=== PATIENT | male | born 1940 | race Caucasian/White ===

== ENCOUNTER 2017-11-05 12:32 | Emergency (ER) | payer MEDICARE, OTHER, SELFPAY ==
--- NOTE | 2017-11-05 | CT_ITS ---
CT abdomen pelvis wo con Ordering Physician: Kim Prabhakar MD Patient Age: 77 years: Male HISTORY: ITS.REASON: ABD/PELVIC PAIN TECHNIQUE: Helical CT scanning performed through the abdomen and pelvis with no oral nor IV contrast utilized. COMPARISON :No previous abdominal studies available for comparison CTA chest from February 2017 includes uppermost most abdomen. No history available to radiologist through the [employer] thus I cannot review laboratory or ER findings correlate. HISTORY is extremely not limited FINDINGS ... Significant weight loss since February [address] Requires correlation Now Very thin patient with lack of intraperitoneal fat which limits the study and makes it difficult to delineate structures particularly given this area is a noncontrast CT abdomen.. The lack of oral and IV contrast decreases sensitivity overall particularly with the lack of about intra-abdominal fat surrounding structures . Lung bases clear with no significant acute findings. . Heart normal size. Coronary artery calcification as well as calcification at the root of aorta as well as towards aortic valve region. Liver. Granulomatous calcifications. No focal lesions. Biliary ducts upper normal. Spleen. Modest size. Groundglass calcifications. Gallbladder contracted.. Calcified sludge and/or some gravel-like stones stones. Sagittal image 25 axial 58 Pancreas. Not well seen but no focal lesions or significant change. Aorta. Calcified aorta mildly dilated measuring up 2.6 cm diameter... Calcified iliac vessels. Kidneys. No urinary tract calculi nor obstruction.. No renal mass. Pelvis. . With this the lack of intraperitoneal fat along with lack of oral and IV contrast makes it very difficult to delineate structures particularly here at the pelvis. Likely normal but only questionably visualized. Also. Cannot totally exclude minimal fluid at pelvis but I favor small bowel bowel loops and enlarged seminal vesicles more likely a catheter for this appearance and doubt significant free fluid. PROSTATE enlarged measuring 6.4 cm transverse diameter on the axial image 105. On sagittal image 45 there is an prominent density lobulated density focally indenting the inferior base of the urinary bladder which I believe is likely enlarged lobulated prostate measures over 7 cm height.. The urinary bladder drapes over this area. (Favor enlarged prostate prominent in indenting the base of bladder. (Doubt bladder wall lesion at midline base of bladder.)... These findings require urology follow-up and correlation with urinalysis. I have no access to laboratory with [employer] system to further correlate ... GI TRACT. Prominent stool is seen at the low-lying cecum. Reflecting constipation in increased stool also seen throughout the right and transverse colon.. Generous gas is seen at the splenic flexure. Mild to moderate stool and gas throughout the remainder of the rectosigmoid and descending colon. Small bowel is slight increased fluid. It is difficult with the lack of distention with trace structures to exclude a minimal fluid at the lower pelvic basin. More likely a I'm giving prominent seminal vesicles in this region.. Moderate distended fluid-filled stomach. Otherwise no bowel dilatation or obstruction .. Regarding right hip pain I see no lesions at the right hip than the right femoral head intact. The right hip joint space fairly well maintained. No bone lesions are identified Nearly 20 degree dextroscoliosis L1-L3 . Degenerative disc narrowing and facet hypertrophy most evident the left at L2/3 L3/4.. Developing spinal stenosis at each of these levels., .. Disc space narrowing with degenerative listhesis L3 on L4. Marked disc space narrowing L2/3 to the left along with posterior element hypertrophy.. Also disc
[2017-11-05 12:39] VITALS: BP 151/79; PULSE 57; RESP 18; TEMP 36.8; O2SAT 100; BMI 19.3
[2017-11-05 13:58] LABS: Basophils % 0.3 % (0.1-2.0); Eosinophils # 0.2 K/mm3 (0.0-0.4); Hematocrit 40.8 % (42.0-52.0); Hemoglobin 13.3 g/dL (14.1-18.0); Lymphocytes # 1.9 K/mm3 (0.7-4.5); Lymphocytes % 21.5 K/mm3 (10-50); Mean Corpuscular HGB Conc 32.6 g/dL (31.8-35.4); Mean Platelet Volume 9.5 fl (7.4-10.4); Monocytes # 0.5 K/mm3 (0.1-1.0); Monocytes % 5.1 % (1.7-9.3); Neutrophils # 6.3 K/mm3 (1.8-7.8); Neutrophils % 71.2 % (37.0-80.0); Platelet Count 261 K/mm3 (142-424); Red Blood Count 4.59 M/mm3 (4.60-6.20); Red Cell Distribution Width 15.9 % (11.5-17.5); White Blood Count 8.9 K/mm3 (4.8-10.8)
[2017-11-05 14:09] LABS: Alanine Aminotransferase 35 U/L (12-78); Albumin Level 3.9 gm/dL (3.4-5.0); Albumin/Globulin Ratio 1.2 (1.1-1.8); Alkaline Phosphatase 92 U/L (46-116); Anion Gap 11.8 mEq/L (5-15); Aspartate Amino Transferase 31 U/L (15-37); Bilirubin,Total 0.5 mg/dL (0.2-1.0); Blood Urea Nitrogen 13 mg/dL (7-18); Calcium 8.7 mg/dL (8.5-10.1); Carbon Dioxide 26 mmol/L (21.0-32.0); Chloride 102 mmol/L (98-107); Creatinine Clearance Estimated 58 mL/min (0-300); Estimated Glomerular Filt Rate 94 ml/min (>60); GFR (African American) 114 ML/MIN (>60); Globulin 3.3 gm/dl (1.3-3.2); Glucose 107 mg/dL (74-106); Lipase 230 u/L (73-393); Potassium 3.8 mmoL/L (3.5-5.1); Sodium 136 mmol/L (136-145); Total Protein,Serum 7.2 gm/dL (6.4-8.2)
[2017-11-05 15:19] LABS: Microscopic, Urine URINE MICROSCOPIC (MICROSCOPIC)
[2017-11-05 15:21] LABS: Appearance,Urine SL CLOUDY (Clear); Bilirubin,Urine Negative (Negative); Blood, Urine Negative (Negative); Color,Urine YELLOW (Yellow); Glucose,Urine (UA) Negative (Negative); Ketones,Urine Negative (Negative); Leukocyte Esterase,Urine Negative (Negative); Nitrate,Urine Negative (Negative); PH,Urine 7.5 (5.0-8.5); Protein,Urine Negative (Negative); Specific Gravity, Urine 1.015 (1.005-1.030); Urobilinogen,Urine 0.2 EU/dl (0.2)
[2017-11-05 15:36] LABS: Bacteria,Urine 3+ /lpf
--- NOTE | 2017-11-05 20:21 | HMH.EDGENADL ---
ED Disposition Clinical Impression: Nausea alone Hip pain, chronic Qualifiers: Laterality: unspecified laterality Qualified Code(s): M25.559 - Pain in unspecified hip; G89.29 - Other chronic pain Disposition: Left Against Medical Advice Condition on Discharge: Good Instructions: DI for Nausea -- Child, DI for Diarrhea and Traveler's Diarrhea -- Adult, DI for Diarrhea and Traveler's Diarrhea -- Child Additional Instructions: Patient left after CT was performed and reviewed and noted to be negative; he left before receiving any discharge instructions. Referrals: Inocente Chaudhari MD [Primary Care Provider] - - Critical Care Critical Care Time: No Attestation: On 11/05/17, the high probability of a clinically significant, sudden or life threatening deterioration of the following system(s) required my full and direct attention, intervention and personal management. The time I documented below is in addition to time spent performing reported procedures but includes the following listed in this critical care notation. Medical Decision Making Vital Signs: 11/05/17 12:39 11/05/17 18:00 Temperature 98.2 F Temperature Source Oral Pulse Rate [Left Brachial] 57 L Respiratory Rate 18 Blood Pressure [Left Arm] 151/79 Blood Pressure Mean [Left Arm] 103 Blood Pressure Source [Left Arm] Automatic Cuff Blood Pressure Position [Left Arm] Sitting 02 Sat by Pulse Oximetry 100 Oxygen Delivery Method Room Air Room Air - Lab Data Lab Results 11/05/17 13:40: WBC 8.9, RBC 4.59 L, Hgb 13.3 L, Hct 40.8 L, MCV 89.0, MCH 29.0, MCHC 32.6, RDW 15.9, Plt Count 261, MPV 9.5, Neut % (Auto) 71.2, Lymph % (Auto) 21.5, [place] % (Auto) 5.1, Eos % (Auto) 2.0, Baso % (Auto) 0.3, Neut # (Auto) 6.3, Lymph # (Auto) 1.9, [place] # (Auto) 0.5, Eos # (Auto) 0.2, Baso # (Auto) 0.0 11/05/17 13:40: Sodium 136, Potassium 3.8, Chloride 102, Carbon Dioxide 26, Anion Gap 11.8, BUN 13, Creatinine 0.80, Estimated Creat Clear 58, Estimated GFR 94, Est GFR ( Amer) 114, Glucose 107 H, Calcium 8.7, Total Bilirubin 0.5, AST 31, ALT 35, Alkaline Phosphatase 92, Total Protein 7.2, Albumin 3.9, Globulin 3.3 H, Albumin/Globulin Ratio 1.2, Lipase 230 11/05/17 15:15: Urine Color Yellow, Urine Appearance Sl cloudy, Urine pH 7.5, Ur Specific [place] 1.015, Urine Protein Negative, Urine Glucose (UA) Negative, Urine Ketones Negative, Urine Blood Negative, Urine Nitrate Negative, Urine Bilirubin Negative, Urine Urobilinogen 0.2, Ur Leukocyte Esterase Negative, Urine WBC 5-10, Ur Squamous Epith Cells 3-5, Urine Bacteria 3+ Result diagrams: 11/05/17 13:40 11/05/17 13:40 Orders (Tests/Meds): ED MEDICATIONS Discontinued Medications Generic Name Dose Route Start Last Admin Trade Name Freq PRN Reason Stop Dose Admin Ondansetron HCl 4 mg 11/05/17 15:16 11/05/17 15:20 Zofran 4mg/2ml Vial IV 11/05/17 15:17 4 mg ONCE ONE Administration ORDERS Category Date Time Status Lactic Acid Stat Lab 11/05/17 13:29 Ordered Urine Culture Stat Micro 11/05/17 15:15 Received - CT Data CT Scan: Abdomen, Pelvis Time Received: 17:[address] Reviewed: Yes: I have viewed the radiologist's interpretation Preliminary Findings: Abnormal Findings Narrative: gall bladder sludge; increased stool; no hip abnormalities noted; some DJD of lumbar spine; neg acute findings; enlarged prostate. - Justen Inquiry Pt receiving controlled substance: No General Adult HPI - General Chief complaint: Nausea/Vomiting/Diarrhea Stated complaint: hip pain unknown origin Mode of Arrival: Wheelchair Limitations: Altered Mental Status Description of Symptoms (Recalled from ER Triage Doc. by RN): left hip pain, nausea - History of Present Illness HPI narrative: With chronic hip pain, seems to be worse over the past 2 weeks. Also having some nausea. He has had a closed head injury in the past, daughter is his historian. Says that he has had no mandie chest jeremy
--- NOTE | 2017-11-05 20:25 | ED_ITS ---
ED Disposition Clinical Impression: Nausea alone Hip pain, chronic Qualifiers: Laterality: unspecified laterality Qualified Code(s): M25.559 - Pain in unspecified hip; G89.29 - Other chronic pain Disposition: Left Against Medical Advice Condition on Discharge: Good Instructions: DI for Nausea -- Child, DI for Diarrhea and Traveler's Diarrhea - - Adult, DI for Diarrhea and Traveler's Diarrhea -- Child Additional Instructions: Patient left after CT was performed and reviewed and noted to be negative; he left before receiving any discharge instructions. Referrals: Inocente Chaudhari MD [Primary Care Provider] - - Critical Care Critical Care Time: No Attestation: On 11/05/17, the high probability of a clinically significant, sudden or life threatening deterioration of the following system(s) required my full and direct attention, intervention and personal management. The time I documented below is in addition to time spent performing reported procedures but includes the following listed in this critical care notation. Medical Decision Making Vital Signs: 11/05/17 12:39 11/05/17 18:00 Temperature 98.2 F Temperature Source Oral Pulse Rate [Left Brachial] 57 L Respiratory Rate 18 Blood Pressure [Left Arm] 151/79 Blood Pressure Mean [Left Arm] 103 Blood Pressure Source [Left Arm] Automatic Cuff Blood Pressure Position [Left Arm] Sitting 02 Sat by Pulse Oximetry 100 Oxygen Delivery Method Room Air Room Air - Lab Data Lab Results 11/05/17 13:40: WBC 8.9, RBC 4.59 L, Hgb 13.3 L, Hct 40.8 L, MCV 89.0, MCH 29.0 , MCHC 32.6, RDW 15.9, Plt Count 261, MPV 9.5, Neut % (Auto) 71.2, Lymph % (Auto ) 21.5, [place] % (Auto) 5.1, Eos % (Auto) 2.0, Baso % (Auto) 0.3, Neut # (Auto) 6.3, Lymph # (Auto) 1.9, [place] # (Auto) 0.5, Eos # (Auto) 0.2, Baso # (Auto) 0.0 11/05/17 13:40: Sodium 136, Potassium 3.8, Chloride 102, Carbon Dioxide 26, Anion Gap 11.8, BUN 13, Creatinine 0.80, Estimated Creat Clear 58, Estimated GFR 94, Est GFR ( Amer) 114, Glucose 107 H, Calcium 8.7, Total Bilirubin 0.5, AST 31, ALT 35, Alkaline Phosphatase 92, Total Protein 7.2, Albumin 3.9, Globulin 3.3 H, Albumin/Globulin Ratio 1.2, Lipase 230 11/05/17 15:15: Urine Color Yellow, Urine Appearance Sl cloudy, Urine pH 7.5, Ur Specific [place] 1.015, Urine Protein Negative, Urine Glucose (UA) Negative, Urine Ketones Negative, Urine Blood Negative, Urine Nitrate Negative, Urine Bilirubin Negative, Urine Urobilinogen 0.2, Ur Leukocyte Esterase Negative, Urine WBC 5-10, Ur Squamous Epith Cells 3-5, Urine Bacteria 3+ Result diagrams: 11/05/17 13:40 11/05/17 13:40 Orders (Tests/Meds): ED MEDICATIONS Discontinued Medications Generic Name Dose Route Start Last Admin Trade Name Freq PRN Reason Stop Dose Admin Ondansetron HCl 4 mg 11/05/17 15:16 11/05/17 15:20 Zofran 4mg/2ml Vial IV 11/05/17 15:17 4 mg ONCE ONE Administration ORDERS Category Date Time Status Lactic Acid Stat Lab 11/05/17 13:29 Ordered Urine Culture Stat Micro 11/05/17 15:15 Received - CT Data CT Scan: Abdomen, Pelvis Time Received: 17:[address] Reviewed: Yes: I have viewed the radiologist's interpretation Preliminary Findings: Abnormal Findings Narrative: gall bladder sludge; increased stool; no hip abnormalities noted; some DJD of lumbar spine; neg acute findings; enla
== END 2017-11-05 18:00 | disposition left against medical advice (07) ==
PROVIDERS: Emergency Provider Emergency Medicine; Family Provider Family Medicine; PCP Family Medicine
DX: R11.0 Nausea (principal); Z53.21 Procedure and treatment not carried out due to patient leaving prior to being seen by health care provider; M25.552 Pain in left hip; G89.29 Other chronic pain; Z79.899 Other long term (current) drug therapy; Z88.8 Allergy status to other drugs, medicaments and biological substances; F17.210 Nicotine dependence, cigarettes, uncomplicated
CPT/HCPCS: 74176; 80053; 81001; 83690; 85025; 87086; 96374; 99282; J2405

== ENCOUNTER → 2017-11-11 08:03 | Outpatient (CLI) | payer MEDICARE, OTHER, SELFPAY ==
--- NOTE | 2017-11-11 08:10 | US_ITS ---
US abdomen limited HISTORY: Abdominal pain with vomiting and nausea ITS.REASON: GB STONE, VOMITING /NAUSEA ORDERING PHYSICIAN: Inocente Chaudhari MD PATIENT AGE: 77 years COMPARISON: None FINDINGS: PANCREAS: Unremarkable. No obvious mass or abnormal fluid collection. No ductal dilatation LIVER: No focal liver lesions demonstrated. Homogeneous echogenicity. No intrahepatic biliary ductal dilatation evident. Scattered hyperechoic foci within the liver consistent with calcifications RIGHT KIDNEY: Unremarkable. Normal size and echogenicity. No hydronephrosis GALLBLADDER: There are gallstones present. No gallbladder wall thickening, pericholecystic fluid, or biliary dilatation. Common bile duct is normal at 3 mm. Multiple small stones are present. IMPRESSION: Cholelithiasis
== END ==
PROVIDERS: Family Provider Family Medicine; PCP Family Medicine; Visit Provider Family Medicine
DX: R11.2 Nausea with vomiting, unspecified (principal); K80.20 Calculus of gallbladder without cholecystitis without obstruction
CPT/HCPCS: 76705

== ENCOUNTER 2017-11-23 05:57 | Day surgery (SDC) | payer MEDICARE, OTHER, SELFPAY ==
[2017-11-22 12:53] VITALS: BMI 16.9
[2017-11-23] VITALS (9 sets, daily range): BP systolic 117–146; BP diastolic 37–92; PULSE 57–79; RESP 16–18; TEMP 36.2–37; O2SAT 95–100
--- NOTE | 2017-11-23 07:01 | HMH.ANESCL ---
[facility] Anesthesia Checklist - Structural Data Admitted From: Home Planned Operative Procedure/s: lap sol Consent for Planned Operative Procedure(s) Verified: Yes Verified Documents: Surgical Consent - NPO Status Verified Time NPO: 12:00 - Neurological Assessment Level of Consciousness: Awake, Alert - Anesthesia Plan Anesthesia Risk discussed: Yes Anesthesia Plan: Verified ASA Class: II Anesthesia Type: General [facility] Anesthesia HX I have reviewed the patient's past medical history: Yes Medical History: Denies:: Cancer, Diabetes Mellitus Type 1, Diabetes Mellitus Type 2, Internal Pacemaker, MRSA, Seizures Other Medical History: Reports: Other (high cholesterol) Comment: hypothyroid Laterality Cases: Left: Arthroscopy Knee, Bilateral: Tonsillectomy Other Surgeries: Yes: Colonoscopy, EGD. No: Pacemaker Amputation: No Fractures: Yes (skull & ribs) Comment: tonsils *Family Hx:: Cancer, Hypertension
--- NOTE | 2017-11-23 08:10 | HMH.OPNOTE ---
Date of procedure: 11/23/17 Pre-op Diagnosis:: Symptomatic cholelithiasis Post-op diagnosis:: same Procedure performed:: Laparoscopic cholecystectomy Surgeon:: Isac Maya MD Assistant Portfolio Manager(s):: Jose Antonio Jose DINKEY LOCOMOTIVE ENGINEER:: Bruce Downey Anesthesia: GETA Estimated blood loss (mL): 10 Operative findings:: Partially intrahepatic gallbladder Moderate thickening of tissue in and around the infundibulum Operative note:: After informed consent was obtained, the patient was taken to the operating room and placed in the supine position. General anesthesia was induced and the abdomen was prepped and draped in a sterile fashion. After infiltration with local anesthetic an infraumbilical incision was made. A Veress needle was placed in position. The abdomen was insufflated. A 5 mm optical trocar was placed in position. Under direct visualization, a 12 mm trocar was placed in the subxiphoid position and 2 additional 5 mm trocars were placed in the right upper quadrant. The gallbladder was elevated up and over the liver margin. The tissue around the cystic duct was carefully dissected. 3 clips were placed proximally and the duct was transected with harmonic dane. Harmonic dane were then utilized to dissect the gallbladder away from the liver margin with careful attention to the control of the cystic artery. The gallbladder was placed in a retrieval bag and removed through the subxiphoid trocar site. The right upper quadrant was thoroughly irrigated. No active bleeding or bile leak was noted. Fascia at the subxiphoid trocar site was reapproximated utilizing 0 Ethibond. T he remaining trocars were removed. All wounds were irrigated and skin was closed with 4-0 Monocryl in a subcuticular fashion. Steri-Strips were applied. The patient's anesthetic agents were reversed and extubation was completed prior to transfer to recovery in stable condition. Condition: stable Disposition: PACU Specimens:: Gallbladder and contents Complications:: No immediate
--- NOTE | 2017-11-23 08:25 | HMH.ANESI ---
[facility] Anesthesia Record Part I Intake, IV Amount: 900 Estimated blood loss (mL): 10 Urine output (mL): 0 Blood Products used (#): none Blood Pressure: 146/75 SaO2: 99 Pulse Rate: 73 Respiratory Rate: 18 Temperature: 97.4 F Patient is:: Drowsy, Stable Stable to PACU at:: 08:26
--- NOTE | 2017-11-23 08:26 | HMH.ANESII ---
[facility] Anesthesia Record Part II Discharge Time: 08:56 Destination: Surgical Day Care (OP Surgery) PACU nurse assessment reviewed?: Yes Patient Condition:: Good Anesthesia Complications:: None
--- NOTE | 2017-11-23 10:16 | PC.NURSE ---
0857: Patient is very hard of hearing, daughter at bedside assisting with hearing aids application.
--- NOTE | 2017-11-23 10:18 | PC.NURSE ---
0907: Called Dr. Maya's office to speak with Dr. Maya in regards to having 1 gram IV tylenol per anesthesia. Wanted to see if he wanted to give a different medication that what he wrote. Spoke with BUCK from the office and she said he will call back.
--- NOTE | 2017-11-23 10:27 | PC.NURSE ---
0914: Dr. Maya calls back and gives new order for patient's pain. Patient may be given roxicodone 5mg po x1 now.
== END 2017-11-23 09:50 | disposition home or self-care (01) ==
PROVIDERS: Family Provider Family Medicine; PCP Family Medicine; Visit Provider Surgery
PROC: 0FT44ZZ Resection of Gallbladder, Percutaneous Endoscopic Approach (ICD-10-PCS; CPT 47562; principal; 2017-11-23 07:30)
DX: K80.20 Calculus of gallbladder without cholecystitis without obstruction (principal)
CPT/HCPCS: 47562; 88304; 96374; J0131; J2405; J2710

== ENCOUNTER 2020-02-26 20:11 | Inpatient (IN) | payer MEDICARE, OTHER, SELFPAY ==
[2020-02-26] VITALS (8 sets, daily range): BP systolic 117–139; BP diastolic 53–69; PULSE 70–94; RESP 16–20; TEMP 36.8–37.1; O2SAT 96–100; BMI 16.0
--- NOTE | 2020-02-26 20:21 | XR_ITS ---
PROCEDURE: XR CHEST PORTABLE CLINICAL HISTORY: fall Posttraumatic pain COMPARISON: XR HIP RT 2-3V W/PELVIS from 02/26/2020 Pelvis from 02/26/2020 FINDINGS: The cardiomediastinal silhouette and pulmonary vascularity are within normal limits. The lungs are clear without infiltrates, suspicious nodules, or pleural effusions. No acute bony abnormalities. IMPRESSION: No acute findings. Dictated by: Tom Naranjo MD 02/27/2020 07:33 Electronically signed by Tom Naranjo MD in [place] 02/27/2020 07:33
--- NOTE | 2020-02-26 20:24 | ECG_ITS ---
APPROVED REPORT Exam: Resting ECG HR:65 bpm ECG Measurements Heart Rate 65 AXES SD 186 P 77 QRSd 96 QRS 79 QT 424 T 46 QTc 440 <Conclusion> Normal sinus rhythm Normal ECG Electronically signed by : Bruce Haynes, 02/27/2020 06:32:08
[2020-02-26 20:34] LABS: Basophils % 0.5 % (0.1-2.0); Eosinophils # 0.2 K/mm3 (0.0-0.4); Eosinophils % 2.3 % (0.1-12.0); Hematocrit 40.7 % (42.0-52.0); Hemoglobin 13.2 g/dL (14.1-18.0); Lymphocytes # 2.6 K/mm3 (0.7-4.5); Lymphocytes % 30.9 % (10-50); Mean Corpuscular HGB Conc 32.4 g/dL (31.8-35.4); Mean Corpuscular Volume 86.4 fl (80-94); Mean Platelet Volume 8.4 fl (7.4-10.4); Monocytes # 0.7 K/mm3 (0.1-1.0); Monocytes % 8.3 % (1.7-9.3); Neutrophils % 58.1 % (37.0-80.0); Platelet Count 308 K/mm3 (142-424); Red Blood Count 4.71 M/mm3 (4.60-6.20); Red Cell Distribution Width 19.5 % (11.5-17.5); White Blood Count 8.5 K/mm3 (4.8-10.8)
--- NOTE | 2020-02-26 20:35 | HMH.EDFALL ---
ED Disposition Clinical Impression: Hip fracture Qualifiers: Encounter type: initial encounter Fracture type: closed Laterality: right Qualified Code(s): S72.001A - Fracture of unspecified part of neck of right femur, initial encounter for closed fracture Disposition: Admitted As Inpatient Condition on Discharge: Good - Critical Care Critical Care Time: No Attestation: On 02/26/20, the high probability of a clinically significant, sudden or life threatening deterioration of the following system(s) required my full and direct attention, intervention and personal management. The time I documented below is in addition to time spent performing reported procedures but includes the following listed in this critical care notation. Medical Decision Making - Medical Records Medical records reviewed: Yes: I reviewed the patient's medical records. - Justen Inquiry Pt receiving controlled substance: No Vital Signs: 02/26/20 20:12 02/26/20 21:00 02/26/20 21:24 Temperature 98.3 F Temperature Source Oral Pulse Rate [Right Brachial] 94 H 70 72 Respiratory Rate 17 17 16 Blood Pressure [Right Arm] 121/53 L 121/65 127/66 Blood Pressure Mean [Right Arm] 75 83 86 Blood Pressure Source [Right Arm] Automatic Cuff Blood Pressure Position [Right Arm] Sitting Sitting 02 Sat by Pulse Oximetry 96 100 98 Oxygen Delivery Method Room Air Room Air Room Air 02/26/20 21:36 Temperature Temperature Source Pulse Rate [Right Brachial] 74 Respiratory Rate 18 Blood Pressure [Right Arm] 133/57 L Blood Pressure Mean [Right Arm] 82 Blood Pressure Source [Right Arm] Blood Pressure Position [Right Arm] 02 Sat by Pulse Oximetry 98 Oxygen Delivery Method Room Air - Lab Data Lab results reviewed: Yes: I reviewed the patient's lab results. Lab Results 02/26/20 20:14: WBC 8.5, RBC 4.71, Hgb 13.2 L, Hct 40.7 L, MCV 86.4, MCH 28.0, MCHC 32.4, RDW 19.5 H, Plt Count 308, MPV 8.4, Neut % (Auto) 58.1, Lymph % (Auto) 30.9, [place] % (Auto) 8.3, Eos % (Auto) 2.3, Baso % (Auto) 0.5, Neut # (Auto) 5.0, Lymph # (Auto) 2.6, [place] # (Auto) 0.7, Eos # (Auto) 0.2, Baso # (Auto) 0.0 02/26/20 20:14: Sodium 137, Potassium 3.7, Chloride 101, Carbon Dioxide 27, Anion Gap 12.7, BUN 11, Creatinine 0.90, Estimated Creat Clear 48, Estimated GFR 81, Est GFR ( Amer) 98, Glucose 114 H, Calcium 9.3, Total Bilirubin 0.3, AST 22, ALT 14, Alkaline Phosphatase 82, Troponin I < 0.01, Total Protein 7.1, Albumin 4.1, Globulin 3.0, Albumin/Globulin Ratio 1.4 Result diagrams: 02/26/20 20:14 02/26/20 20:14 Orders (Tests/Meds): ORDERS Category Date Time Status XR chest portable Stat Exams 02/26/20 20:21 Taken XR hip RT 2-3V w/pelvis Stat Exams 02/26/20 20:52 Taken Troponin I Q3H Lab 02/26/20 23:30 Ordered Troponin I Q3H Lab 02/27/20 02:30 Ordered - Radiology Data #1 Image(s): Chest, Pelvis, Hip Image Reviewed: Yes I reviewed the patient's radiology image Preliminary Findings: Abnormal (rt hip fx ) - ECG Data Tracing #1 Normal Sinus Rhythm: Yes Ischemic changes: non-specific ST-T wave changes - Physician Consults Physician Consulted: braden Reason -: Admission Additional Consult: reddey Reason -: Pt condition - Reevaluation(s) Time: 21:47 Reevaluation #1: doing ok - less pain Medical Decision Narrative: prob trip injury with rt hip pain - no known ht dis Fall HPI - General Chief Complaint: Fall Stated Complaint: fall Time Seen by Provider: 02/26/20 20:20 Mode of Arrival: EMS Source of Information: Patient, Relative, EMS, Medical Record Limitations: No Limitations Description of Symptoms (Recalled from ER Triage Doc. by RN): Patient brought in by [facility]. EMS reports patient was walking through the house and tripped over his own feet. Patient denies hitting his head and denies any loss of consciousness. Patients only complaint is his right hip. - History of Present Illness HPI Narrative: pt with trip type
[2020-02-26 20:42] LABS: Chloride 101 mmol/L (98-107); Sodium 137 mmol/L (136-145)
--- NOTE | 2020-02-26 20:42 | PC.NURSE ---
Patient gone for xrays at this time
[2020-02-26 20:43] LABS: Potassium 3.7 mmoL/L (3.5-5.1)
[2020-02-26 20:45] LABS: Alanine Aminotransferase 14 U/L (12-78); Alkaline Phosphatase 82 U/L (38-126); Aspartate Amino Transferase 22 U/L (17-59); Bilirubin,Total 0.3 mg/dl (0.2-1.3); Blood Urea Nitrogen 11 mg/dl (9-20); Creatinine Clearance Estimated 48 mL/min (50-200); Estimated Glomerular Filt Rate 81 ml/min (>60); GFR (African American) 98 ML/MIN (>60)
[2020-02-26 20:46] LABS: Albumin Level 4.1 g/dl (3.5-5.0); Albumin/Globulin Ratio 1.4 (1.1-1.8); Anion Gap 12.7 mEq/L (5-15); Calcium 9.3 mg/dl (8.4-10.2); Carbon Dioxide 27 mmol/L (22.0-30.0); Glucose 114 mg/dl (74-100); Total Protein,Serum 7.1 g/dl (6.3-8.2)
--- NOTE | 2020-02-26 20:52 | XR_ITS ---
PROCEDURE: XR HIP RT 2-3V W/PELVIS CLINICAL INDICATION: fall Right hip pain following injury COMPARISON: Pelvis from 02/26/2020 FINDINGS: There is a nondisplaced intertrochanteric fracture of the right femur. No evidence of dislocation or other significant anomaly. IMPRESSION: Nondisplaced right intertrochanteric femur fracture Dictated by: Tom Naranjo MD 02/27/2020 07:32 Electronically signed by Tom Naranjo MD in [place] 02/27/2020 07:32
--- NOTE | 2020-02-26 20:58 | PC.NURSE ---
pt back from XR
[2020-02-26 21:00] LABS: Troponin I < 0.01 ng/ml (0.00-0.034)
--- NOTE | 2020-02-26 21:00 | PC.NURSE ---
spoke with MIRIAM nurse. Pt does not need testing prior to surgery
--- NOTE | 2020-02-26 21:36 | PC.NURSE ---
spoke with dr feliciano. will be admitting pt to [facility] for a right hip fx
--- NOTE | 2020-02-26 22:24 | PC.NURSE ---
patient arrived to floor via stretcher.
[2020-02-26 23:30] LABS: Troponin I < 0.01 ng/ml (0.00-0.034)
[2020-02-27] VITALS (21 sets, daily range): BP systolic 118–142; BP diastolic 57–80; PULSE 60–100; RESP 16–22; TEMP 36.3–43; O2SAT 93–100; BMI 19.3
[2020-02-27 01:40] LABS: Microscopic, Urine URINE MICROSCOPIC (MICROSCOPIC)
[2020-02-27 01:42] LABS: Bilirubin,Urine Negative (Negative); Blood, Urine 2+ (Negative); Color,Urine YELLOW (Yellow); Glucose,Urine (UA) Negative (Negative); Ketones,Urine Negative (Negative); Leukocyte Esterase,Urine TRACE (Negative); Nitrate,Urine POSITIVE (Negative); PH,Urine 6.5 (5.0-8.5); Protein,Urine Negative (Negative); Urobilinogen,Urine 0.2 EU/dl (0.2)
[2020-02-27 01:43] LABS: Appearance,Urine Slightly Cloudy (Clear)
[2020-02-27 01:48] LABS: Amorphous Sediment,Urine 1+ /lpf; Bacteria,Urine 2+ /lpf; Mucus,Urine 1+ /lpf; RBC,Urine Occasional #/hpf (0-3); WBC,Urine Occasional #/hpf (0-3)
[2020-02-27 03:03] LABS: Troponin I < 0.01 ng/ml (0.00-0.034)
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
[2020-02-27 06:39] LABS: Eosinophils # 0.2 K/mm3 (0.0-0.4); Mean Platelet Volume 8.4 fl (7.4-10.4); Monocytes # 0.9 K/mm3 (0.1-1.0); Red Cell Distribution Width 19.5 % (11.5-17.5)
[2020-02-27 06:47] LABS: Basophils # 0.1 K/mm3 (0-0.2); Basophils % 0.6 % (0.1-2.0); Chloride 107 mmol/L (98-107); Eosinophils % 2.3 % (0.1-12.0); Hematocrit 36.3 % (42.0-52.0); Lymphocytes % 22.7 % (10-50); Mean Corpuscular HGB Conc 32.7 g/dL (31.8-35.4); Mean Corpuscular Hemoglobin 28.6 pg (27.0-31.2); Mean Corpuscular Volume 87.2 fl (80-94); Monocytes % 9.9 % (1.7-9.3); Neutrophils # 5.6 K/mm3 (1.8-7.8); Neutrophils % 64.5 % (37.0-80.0); Platelet Count 263 K/mm3 (142-424); Red Blood Count 4.16 M/mm3 (4.60-6.20); White Blood Count 8.7 K/mm3 (4.8-10.8)
[2020-02-27 06:48] LABS: Hemoglobin 11.9 g/dL (14.1-18.0); Sodium 138 mmol/L (136-145)
[2020-02-27 06:50] LABS: INR 0.99 (0.9-1.1); Prothrombin Time 10.3 seconds (9.4-11.8)
[2020-02-27 06:51] LABS: Blood Urea Nitrogen 10 mg/dl (9-20); Calcium 8.8 mg/dl (8.4-10.2); Carbon Dioxide 27 mmol/L (22.0-30.0); Creatinine Clearance Estimated 48 mL/min (50-200); Estimated Glomerular Filt Rate 109 ml/min (>60); GFR (African American) 132 ML/MIN (>60); Glucose 113 mg/dl (74-100); Magnesium 2.1 mg/dl (1.6-2.3)
--- NOTE | 2020-02-27 07:44 | P.CONPHA_ITS ---
[facility] Pharm[facility] VTE Monitoring - Patient Demographics Admission date: 02/26/20 Report Date: 02/27/20 Time: 07:44 Allergies/Adverse Reactions: Patient Allergies Ciprofibrate Allergy (Severe, Uncoded 11/22/17 12:47) S-SKIN ERUPTIONS Height: 1.88 m Weight: 56.699 kg Patient Problems: Current Active Problems Hip fracture (Acute) - VTE Risk Labs: VTE Related Lab Results Hgb 11.9 g/dL (14.1-18.0) L 02/27/20 06:10 Hct 36.3 % (42.0-52.0) L 02/27/20 06:10 Plt Count 263 K/mm3 (142-424) 02/27/20 06:10 PT 10.3 seconds (9.4-11.8) 02/27/20 06:10 INR 0.99 (0.9-1.1) 02/27/20 06:10 BUN 10 mg/dl (9-20) 02/27/20 06:10 Creatinine 0.70 mg/dl (0.66-1.25) D 02/27/20 06:10 Estimated Creat Clear 48 mL/min (50-200) 02/27/20 06:10 Was VTE Risk Assessment Performed: Yes VTE Score: 4 VTE Risk Level: Low Risk Clinical Trial Participant: No - Prophylaxis VTE Prophylaxis Ordered?: Yes Types of VTE Prophylaxis: TEDS Knee High
--- NOTE | 2020-02-27 07:59 | HMH.PHAINT ---
HOME MEDICATION RECONCILIATION COMPLETED USING LIST FROM HOME PHARMACY
--- NOTE | 2020-02-27 08:00 | CA_ITS ---
APPROVED REPORT EXAM: Comprehensive 2D, Doppler, and color-flow Echocardiogram Steel Loader: Kinga Parekh RVT Ht: 6 ft 2 in Wt: 125lbs BSA: 1.78 BP: 127/66 mmHg Indications: MURMUR,RT HIP FX,SMOKER TDS-PT FLAT ON BACK,BEST EXAM POSSIBLE 2D Dimensions LVOT 0.98 cm (M/F) 1.5-2.5 M-Mode Dimensions RVDd 1.80 cm (0.9-2.6) LVDd 4.00 cm (3.5-5.7) LVDs 2.64 cm (3.5-5.7) IVSd 0.97 cm (0.6-1.1) PWd 0.77 cm (0.6-1.1) EF (Teich) 63.40% FS 34.00% EDV (Teich) 70.00 mL ESV (Teich) 25.60 mL LV Diastology E/A Ratio 1.01 Aortic Valve LVOT Max 89.00 (70-110 cm/s) LVOT VTI 23.63 cm Mitral Valve MV A Velocity 68.00 (40-130 cm/s) Left Ventricle Atrium is qualitatively mildly enlarged, left ventricle is normal size, left ventricle wall thickness is upper limit of normal, regular systolic function, visually estimated ejection fraction 55% with no regional wall motion abnormality, grade 1 diastolic dysfunction seen without tissue Doppler evidence of raise left atrial pressure. Right Ventricle Right atrium and right ventricle mildly enlarged with normal contractility. Aortic Valve Aortic valve is thickened and calcified with mild restriction in the leaflet mobility. The Doppler is not indicated above aortic stenosis or aortic insufficiency. Mitral Valve Mitral valve leaflets are minimally thickened, there is no mitral stenosis, there is mild mitral regurgitation. Tricuspid Valve Tricuspid valve is grossly normal, there is mild tricuspid regurgitation, tricuspid regurgitation jet velocity is inadequate for calculation of the right ventricular systolic pressure. Pulmonic Valve Pulmonic valve is poorly visualized. Great Vessels Aortic root is normal size. Pericardium No significant pericardial effusion noted Conclusion 1. Mild mitral enlargement, normal left ventricular size, visually estimated ejection fraction 55% with no regional wall motion abnormality, grade 1 diastolic dysfunction seen without tissue Doppler evidence of raise left atrial pressure. 2. Thickened and calcified aortic valve without Doppler evidence of aortic stenosis or aortic insufficiency. 3. Mildly enlarged right ventricle with normal contractility. 4. Mild mitral and tricuspid regurgitation. 5. No significant pericardial effusion noted. Electronically signed by : Berry Kaur, 02/28/2020 11:05:32
--- NOTE | 2020-02-27 08:18 | HMH.HP ---
*Admission Date: 02/26/20 <Dianna Veras 02/27/20 08:29> *Chief complaint: right hip pain <Dianna Veras 02/27/20 08:29> *History of present illness: Mr. Solano is a 80-year-old male with a history of peptic ulcer disease, hyperlipidemia, hypothyroidism, dementia, and eczema. He states he had a fall at home but does not remember how he fell. His daughter heard him yelling in her downstairs apartment. She found him on the floor and he was unable to get up. 911 was called and he was transported to the emergency room where he was found to have a right hip fracture. He was admitted and started on pain medication and Ortho was consulted. His daughter does state approximately 2 weeks ago he was complaining of some right hip pain and said it felt weak. She is unsure if maybe it just gave out at home and this was the cause of his fall. He has had pain medication this morning and states his hip is feeling better. <Dianna Veras 02/27/20 08:29> [facility] History I have reviewed the patient's past medical history: Yes <Dianna Veras 02/27/20 08:29> Medical History: Reports:: BPH, Dementia, Hyperlipidemia Denies:: Cancer, Diabetes Mellitus Type 1, Diabetes Mellitus Type 2, Internal Pacemaker, MRSA, Seizures <Dianna Veras 02/27/20 08:29> *Have you ever received a pneumonia vaccine?: No <Dianna Veras 02/27/20 08:29> *Have you received a flu vaccine this season?: No <Dianna Veras 02/27/20 08:29> Other Medical History: Reports: Hypothyroidism, Other (Eczema, Basal Cell Carcinoma nose) <Dianna Veras 02/27/20 08:29> Laterality Cases: Left: Arthroscopy Knee, Bilateral: Tonsillectomy, Other <Dianna Veras 02/27/20 08:29> Other Surgeries: Yes: Appendectomy, Cholecystectomy, Colonoscopy, EGD, Hernia Repair, Other (Vasectomy, Right ankle). No: Pacemaker <Dianna Veras 02/27/20 08:29> Amputation: No <Dianna Veras 02/27/20 08:29> Fractures: Yes (skull & ribs) <Dianna Veras 02/27/20 08:29> - *Social History Smoking Status: Current every day smoker <Dianna Veras 02/27/20 08:29> Tobacco Type: cigarettes <Dianna Veras 02/27/20 08:29> # Packs/Day (cigarettes): 1 <Dianna Veras 02/27/20 08:29> Alcohol Intake: never <Dianna Veras 02/27/20 08:29> Alcohol Intake Frequency:: other <Dianna Veras 02/27/20 08:29> Substance Use Type: denies use <Dianna Veras 02/27/20 08:29> *Occupational Status:: retired <Dianna Veras 02/27/20 08:29> Housing: house <Dianna Veras 02/27/20 08:29> Household Members: none <Dianna Veras 02/27/20 08:29> *Travel in the last 8 weeks: None <Dianna Veras 02/27/20 08:29> Family Hx:: Cancer, Hypertension, Stroke <Dianna Veras 02/27/20 08:29> Review of Systems - Constitutional Denies chills, Denies fever(s) <Dianna Veras 02/27/20 08:29> - Eyes Denies blurry vision, Denies double vision <Dianna Veras 02/27/20 08:29> - ENT Denies nasal congestion, Denies sore throat <Dianna Veras 02/27/20 08:29> - *Cardiovascular Denies chest pain, Denies shortness of breath <Dianna Veras 02/27/20 08:29> - *Respiratory Denies cough, Denies shortness of breath <Dianna Veras 02/27/20 08:29> - *Gastrointestinal Denies abdominal pain, Denies loose stools, Denies nausea, Denies vomiting <Dianna Veras 02/27/20 08:29> - *Genitourinary Denies difficulty urinating, Denies painful urination <Dianna Veras 02/27/20 08:29> - *Musculoskeletal Reports joint pain (right hip) <Dianna Veras - 02/27/20 08:29> - *Neurologic Denies localized weakness, Denies headache(s), Denies seizure-like activity, Denies dizziness, Denies weakness <Dianna Veras - 02/27/20 08:29> Meds Home Medications Medication Instructions Recorded Confirmed Type Atorvastatin Calcium [Atorvastatin 40 mg PO HS 11/05/17 02/27/20 History 40mg Tab] Levothyroxine Sodium [Synthroid 100 mcg PO HS 11/05/17 02/27/20 History 100mcg (0.1mg) tablet] finasteride 5
--- NOTE | 2020-02-27 13:16 | HMH.ORTHOCON ---
*Admission Date: 02/26/20 *Reason for consult:: Intertrochanteric fracture right femur *History of present illness: Mr. Solano is a 80-year-old male with a history of peptic ulcer disease, hyperlipidemia, hypothyroidism, dementia, and eczema. Patient has history of dementia and is a poor historian; his daughter is with him in the room. He states he had a fall at home but does not remember how he fell. His daughter heard him yelling in her downstairs apartment. She found him on the floor and he was unable to get up. 911 was called and he was transported to the emergency room where he was found to have a right hip intertrochanteric fracture. He was admitted to medical services, started on pain medication and Ortho was consulted for definitive management of the fracture. His daughter does state approximately 2 weeks ago he was complaining of some right hip pain and said it felt weak. She is unsure if maybe it just gave out at home and this was the cause of his fall. Patient lives in his own apartment with his daughter living downstairs in the same complex. She helps him with shopping and other day-to-day necessities. She says he is mobile and independent but has been weak shaky on his feet for the last few weeks. Patient denies any dizziness, headache, chest or neck pain. He denies loss of consciousness, chest pain and shortness of breath. He says the pain is well controlled at rest but trying to move the RIGHT leg causes hip pain. Review of Systems - Review of Systems Review of systems:: unable to obtain - *Neurologic Denies localized weakness, Denies headache(s), Denies seizure-like activity, Denies dizziness, Denies weakness [facility] History I have reviewed the patient's past medical history: Yes Medical History: Reports:: BPH, Dementia, Hyperlipidemia Denies:: Cancer, Diabetes Mellitus Type 1, Diabetes Mellitus Type 2, Internal Pacemaker, MRSA, Seizures *Have you ever received a pneumonia vaccine?: No *Have you received a flu vaccine this season?: No Other Medical History: Reports: Hypothyroidism, Other (Eczema, Basal Cell Carcinoma nose) Laterality Cases: Left: Arthroscopy Knee, Bilateral: Tonsillectomy, Other Other Surgeries: Yes: Appendectomy, Cholecystectomy, Colonoscopy, EGD, Hernia Repair, Other (Vasectomy, Right ankle). No: Pacemaker Amputation: No Fractures: Yes (skull & ribs) - *Social History Smoking Status: Current every day smoker Tobacco Type: cigarettes # Packs/Day (cigarettes): 1 Alcohol Intake: never Alcohol Intake Frequency:: other Substance Use Type: denies use *Occupational Status:: retired Housing: house Household Members: none *Travel in the last 8 weeks: None Family Hx:: Cancer, Hypertension, Stroke Meds Home Medications Medication Instructions Recorded Confirmed Type Atorvastatin Calcium [Atorvastatin 40 mg PO HS 11/05/17 02/27/20 History 40mg Tab] Levothyroxine Sodium [Synthroid 100 mcg PO HS 11/05/17 02/27/20 History 100mcg (0.1mg) tablet] finasteride 5 mg tablet 5 mg PO HS 11/16/17 02/27/20 History Melatonin 10 mg PO NEEDED PRN 02/26/20 02/26/20 History Mirtazapine 30 mg PO HS 02/26/20 02/27/20 History Allergies Allergy/AdvReac Type Severity Reaction Status Date / Time Ciprofibrate Allergy Severe S-SKIN Uncoded 11/22/17 12:47 ERUPTIONS Exam Vital signs and Labs for Last 24 Hours: Temp Pulse Resp BP Pulse Ox 98.7 F 65 17 133/61 100 02/27/20 12:59 02/27/20 12:59 02/27/20 12:59 02/27/20 12:59 02/27/20 12:59 Laboratory Results - last 24 hr 02/26/20 20:14: WBC 8.5, RBC 4.71, Hgb 13.2 L, Hct 40.7 L, MCV 86.4, MCH 28.0, MCHC 32.4, RDW 19.5 H, Plt Count 308, MPV 8.4, Neut % (Auto) 58.1, Lymph % (Auto) 30.9, [place] % (Auto) 8.3, Eos % (Auto) 2.3, Baso % (Auto) 0.5, Neut # (Auto) 5.0, Lymph # (Auto) 2.6, [place] # (Auto) 0.7, Eos # (Auto) 0.2, Baso # (Auto) 0.0 02/26/20 20:14: Sodium 137, Potassium 3.7, Chloride 101, Carbon Dioxide 27, Anion Gap 12.7, BUN 11, Creatini
--- NOTE | 2020-02-27 14:53 | P.PN_ITS ---
[facility] Anesthesia Checklist - Patient Identification Patient Identification: Arm Band, Family - Structural Data Admitted From: Inpatient Planned Operative Procedure/s: right hip gamma nail Consent for Planned Operative Procedure(s) Verified: Yes Verified Documents: Surgical Consent, History and Physical - NPO Status Verified Time NPO: 00:00 - Additional verifications Anesthesia Reactions: No Hx Blood Transfusions: No - Airway Assessment C-Spine Mobility Assessed: Yes (mp2) TMJ Mobility Assessed: Yes Dentition: Good Dentition - Neurological Assessment Level of Consciousness: Awake, Alert - Anesthesia Plan Anesthesia Risk discussed: Yes Anesthesia Plan: Verified ASA Class: III Anesthesia Type: MAC w/Spinal [facility] History I have reviewed the patient's past medical history: Yes Medical History: Reports:: BPH, Dementia, Hyperlipidemia Denies:: Cancer, Diabetes Mellitus Type 1, Diabetes Mellitus Type 2, Internal Pacemaker, MRSA, Seizures *Have you ever received a pneumonia vaccine?: No *Have you received a flu vaccine this season?: No Other Medical History: Reports: Hypothyroidism, Other (Eczema, Basal Cell Carcinoma nose) Anesthesia experience/problems:: nac Laterality Cases: Left: Arthroscopy Knee, Bilateral: Tonsillectomy, Other Other Surgeries: Yes: Appendectomy, Cholecystectomy, Colonoscopy, EGD, Hernia Repair, Other (Vasectomy, Right ankle). No: Pacemaker Amputation: No Fractures: Yes (skull & ribs) - *Social History Smoking Status: Current every day smoker Tobacco Type: cigarettes # Packs/Day (cigarettes): 1 Alcohol Intake: never Alcohol Intake Frequency:: other Substance Use Type: denies use *Occupational Status:: retired Housing: house Household Members: none *Travel in the last 8 weeks: None Family Hx:: Cancer, Hypertension, Stroke
--- NOTE | 2020-02-27 15:36 | SUR.OPER ---
1536-family updated at this time
--- NOTE | 2020-02-27 15:57 | XR_ITS ---
PROCEDURE: XR HIP RT 2-3V W/PELVIS CLINICAL INDICATION: RT HIP PINNING COMPARISON: No exams were available for comparison FINDINGS: Fluoroscopy time: 1 minutes and 43 seconds Multiple images submitted during ORIF of the right hip. A gamma nail with long intramedullary david was placed and appears to be in good alignment on the images submitted. IMPRESSION: Status post ORIF of the right hip with good alignment Dictated by: Tom Naranjo MD 02/27/2020 18:05 Electronically signed by Tom Naranjo MD in [place] 02/27/2020 18:05
--- NOTE | 2020-02-27 16:21 | P.PN_ITS ---
[facility] Anesthesia Record Part I Intake, IV Amount: 1,400 Estimated blood loss (mL): 100 Urine output (mL): 700 Blood Pressure: 118/59 SaO2: 95 Pulse Rate: 73 Respiratory Rate: 16 Temperature: 98.1 F Patient is:: Drowsy, Stable Stable to PACU at:: 16:15
--- NOTE | 2020-02-27 17:00 | PC.NURSE ---
164-detailed report called to JUAN Honeycutt 1646-pt transported to med surg room 205 via hospital bed with chayo rails up per JUAN Blackburn and JessicaRN and left in care of JUAN Honeycutt with bed locked in lowest position, vss, pt stable
--- NOTE | 2020-02-27 17:03 | HMH.OPNOTE ---
Date of procedure: 02/27/20 Pre-op Diagnosis:: Intertrochanteric fracture, right femur Post-op Diagnosis:: Same Procedure performed:: Cephalo-medullary nailing, right femur Surgeon:: Godfrey Rich MD Phlebotomy Director(s):: Cinthia Zepeda EQUAL OPPORTUNITY SPECIALIST:: Hudson Ray Anesthesia: spinal Estimated blood loss (mL): 100 Clinical Note:: Patient is a 80-year-old male who had an unwitnessed fall sustaining an injury to his RIGHT hip on 02/26/2020. Following evaluation in the emergency room where x-ray showed a minimally displaced intertrochanteric fracture of the RIGHT proximal femur, patient was admitted for further management. After evaluating the patient, I have discussed the diagnosis and management options in detail including nonsurgical and surgical, with the patient and his daughter. Prior to the injury patient was mobile independently. He has history of dementia and lives in the same apartment complex with his daughter. After a detailed discussion with the patient/family a decision was made to fix the fracture internally with a cephalo-medullary nail. I have discussed the procedure, risks and benefits, postoperative recovery and rehabilitation and the expected outcomes. The complications discussed include but are not limited to DVT, PE, infection, bleeding, injury to nerves and blood vessels, screw cut-out/implant failure, loss of fixation, nonunion, malunion/malrotation, osteonecrosis of the femoral head, femoral shaft fracture, painful hardware, heterotopic ossification, stiffness, weakness, incomplete relief of pain, incomplete return of function or motion and the likely need for further surgery in future, and anesthetic/medical complications including heart attack, stroke, transfusion reaction or . The patient/family wished to proceed with the surgical remediation. Consent form was reviewed and signed by me. The limb was appropriately marked and initialed by me. Following appropriate preoperative workup and medical clearance, patient is brought to the operating room for surgery. The surgery is indicated to reduce and stabilize the fracture, relieve pain and improve function. His daughter understood the risks, agreed to proceed with surgery, signed the consent form and no guarantees or assurances were given or implied. Operative findings:: Minimally displaced intertrochanteric fracture RIGHT proximal femur as noted on the preoperative x-rays. The fracture is well reduced with closed manipulation prior to fixation. Bone quality is good. Operative note:: Following appropriate preoperative workup and medical clearance, patient is brought to the operating room and a spinal anesthesia was administered. Patient was then positioned supine on the fracture table and all the bony prominences were appropriately padded. The RIGHT foot was secured in the footplate and the footplate was attached to the fracture table. The LEFT leg was placed out of the way below the level of the injured extremity so that the C-arm could come in. Under fluoroscopic guidance the fracture was reduced by traction and satisfactory reduction was obtained. The reduction was confirmed on both AP and lateral views. The RIGHT hip and thigh were then prepped and draped in the usual sterile fashion. Administration of prophylactic antibiotics was confirmed with the machine cloth trimmer. A preprocedure timeout was performed as per the hospital protocol. After marking the level of the greater trochanter on the skin under fluoroscopy, a skin incision was made proximal to the greater trochanter in line with the femoral shaft. The dissection was then carried through the subcutaneous tissue. The tensor fascia muscle was split in line with the fibers. This provided access to the tip of the greater trochanter. Under fluoroscopic guidance a guidewire was placed at the tip of the greater trochanter, the position was confirmed on both fluoroscopic views and advanced into the proximal femur. The proximal segment was then reamed over the g
--- NOTE | 2020-02-27 17:54 | PC.NURSE ---
Pt is alert to person. Pt is post-op from a RT cephalo-medullary nailing. F/C is in place and draining at bedside. Pt has been medicated for pain with Morphine X1 this shift per DEC. Bed alarm is in place to prevent falling. Pt is agitated and extremely confused at this time. Dr. Garcia (call center associate for Dr. Chaudhari) paged and received order for Oxazepam 10 MG PO Q6H PRN. MAC vitals are being obtained until 1944 and have been stable thus far. Surgical dressing to the RT hip is c/d/i. Call light within reach. Family at bedside. Will continue to monitor.
--- NOTE | 2020-02-27 18:13 | HMH.ANESII ---
[facility] Anesthesia Record Part II Discharge Time: 16:45 Destination: Medical Surgical Department PACU nurse assessment reviewed?: Yes Patient Condition:: Good Anesthesia Complications:: None Swallowing reflex intact?: Yes Cyanosis?: No Blood Pressure: 127/70 Pulse Rate: 96 Temperature: 98.2 F Mental Status: Confused and Disoriented (baseline) Pain level:: 0 Nausea and/or vomitting:: None Intake, IV Amount: 0
--- NOTE | 2020-02-27 19:09 | PC.NURSE ---
report given to merlin
[2020-02-28] VITALS: BP 133/80; PULSE 100; PULSE 82; RESP 18; TEMP 37.4; O2SAT 95
[2020-02-28 04:00] VITALS: PULSE 90
[2020-02-28 05:00] VITALS: BMI 19.8
--- NOTE | 2020-02-28 05:32 | PC.NURSE ---
PT ONLY ALERT TO NAME AND BIRTHDAY THIS SHIFT. PT TOLERATING RA WELL. PT IN BED T/O THIS SHIFT. DRESSING PRESENT TO R HIP, CDI. ICE PACK APPLIED. PT C/O PAIN WHEN GETTING SITUATED IN THE BED, ADMINISTERED MORPHINE PER DEC. ON REASSESSMENT, PT HAS NO LONGER C/O HIP PAIN. PT HAS CONTINUED TO BE CONFUSED THIS SHIFT. OXAZEPAM ADMINISTERED FOR ANXIETY PER DEC. STAFF AT BEDSIDE AND SAFETY APPLIED TO BED. PT CONTINUOUSLY TRIED TO REMOVE CATHETER. F/C INTACT DRAINING BRIGHT YELLOW URINE. PT RESTING WELL ONCE ASLEEP. NO OTHER COMPLAINTS THUS FAR, VSS WILL CONTINUE TO MONITOR.
[2020-02-28 06:42] LABS: Basophils % 0.2 % (0.1-2.0); Eosinophils # 0.3 K/mm3 (0.0-0.4); Eosinophils % 2.8 % (0.1-12.0); Hematocrit 35.6 % (42.0-52.0); Hemoglobin 11.4 g/dL (14.1-18.0); Lymphocytes # 1.5 K/mm3 (0.7-4.5); Lymphocytes % 15.1 % (10-50); Mean Corpuscular Hemoglobin 27.7 pg (27.0-31.2); Mean Corpuscular Volume 86.5 fl (80-94); Mean Platelet Volume 8.4 fl (7.4-10.4); Monocytes # 1.1 K/mm3 (0.1-1.0); Monocytes % 10.8 % (1.7-9.3); Neutrophils # 7.1 K/mm3 (1.8-7.8); Neutrophils % 71.2 % (37.0-80.0); Platelet Count 222 K/mm3 (142-424); Red Blood Count 4.12 M/mm3 (4.60-6.20); Red Cell Distribution Width 19.3 % (11.5-17.5)
[2020-02-28 06:50] LABS: Chloride 107 mmol/L (98-107); Potassium 3.7 mmoL/L (3.5-5.1); Sodium 134 mmol/L (136-145)
[2020-02-28 06:53] LABS: Alanine Aminotransferase 12 U/L (12-78); Albumin Level 3.3 g/dl (3.5-5.0); Albumin/Globulin Ratio 1.2 (1.1-1.8); Alkaline Phosphatase 78 U/L (38-126); Anion Gap 6.7 mEq/L (5-15); Aspartate Amino Transferase 25 U/L (17-59); Bilirubin,Total 0.5 mg/dl (0.2-1.3); Blood Urea Nitrogen 6 mg/dl (9-20); Carbon Dioxide 24 mmol/L (22.0-30.0); Creatinine Clearance Estimated 56 mL/min (50-200); Estimated Glomerular Filt Rate 109 ml/min (>60); GFR (African American) 132 ML/MIN (>60); Globulin 2.7 g/dL (1.3-3.2)
[2020-02-28 06:54] VITALS: BP 141/69; PULSE 84; RESP 16; TEMP 37.8; O2SAT 90
[2020-02-28 06:54] LABS: Calcium 8.4 mg/dl (8.4-10.2); Glucose 123 mg/dl (74-100)
--- NOTE | 2020-02-28 07:19 | PC.NURSE ---
PT BECOMING MORE AND MORE AGITATED THIS MORNING. CONTACTED MD. AWAITING CALL BACK NOW.
--- NOTE | 2020-02-28 07:31 | PC.NURSE ---
per nurse wait on vitals at this time. patient is very agitated and combative.
--- NOTE | 2020-02-28 08:38 | HMH.ACPN2 ---
<Dianna Veras - Last Filed: 02/28/20 08:38> Internal Medicine - PN: Subj *Date: 02/28/20 *Time: 08:38 Interval history: Patient is very confused this morning. Nursing states he has been combative and had to have some oxazepam. He denies any pain other than in his groin. He states he is not hungry but does try to drink. His daughter arrived and he became more oriented. Exam Vital signs and Labs for Last 24 Hours: Temp Pulse Resp BP Pulse Ox 100.0 F H 84 16 141/69 H 90 L 02/28/20 06:54 02/28/20 06:54 02/28/20 06:54 02/28/20 06:54 02/28/20 06:54 Laboratory Results - last 24 hr 02/27/20 00:30: Urine Color Yellow, Urine Appearance Slightly cloudy, Urine pH 6.5, Ur Specific [place] 1.020, Urine Protein Negative, Urine Glucose (UA) Negative, Urine Ketones Negative, Urine Blood 2+, Urine Nitrate Positive, Urine Bilirubin Negative, Urine Urobilinogen 0.2, Ur Leukocyte Esterase Trace, Urine RBC Occasional, Urine WBC Occasional, Amorphous Sediment 1+, Urine Bacteria 2+, Urine Mucus 1+ 02/27/20 13:02: Blood Type B Positive, Antibody Screen Negative 02/28/20 06:26: WBC 10.0, RBC 4.12 L, Hgb 11.4 L, Hct 35.6 L, MCV 86.5, MCH 27.7, MCHC 32.0, RDW 19.3 H, Plt Count 222, MPV 8.4, Neut % (Auto) 71.2, Lymph % (Auto) 15.1, [place] % (Auto) 10.8 H, Eos % (Auto) 2.8, Baso % (Auto) 0.2, Neut # (Auto) 7.1, Lymph # (Auto) 1.5, [place] # (Auto) 1.1 H, Eos # (Auto) 0.3, Baso # (Auto) 0.0 02/28/20 06:26: Sodium 134 L, Potassium 3.7, Chloride 107, Carbon Dioxide 24, Anion Gap 6.7, BUN 6 L D, Creatinine 0.70, Estimated Creat Clear 56, Estimated GFR 109, Est GFR ( Amer) 132, Glucose 123 H, Calcium 8.4, Total Bilirubin 0.5, AST 25, ALT 12, Alkaline Phosphatase 78, Total Protein 6.0 L, Albumin 3.3 L D, Globulin 2.7, Albumin/Globulin Ratio 1.2 I & O for Last 24 hours: Intake & Output 02/25/20 02/26/20 02/27/20 02/28/20 11:59 11:59 11:59 11:59 Intake Total 360 / 360 2651 / 2651 Output Total 800 / 800 1950 / 1950 Balance -440 / -440 701 / 701 Weight 143 lb 1 oz 146 lb 7 oz Microbiology Reports for the Last 24 Hours: Microbiology 02/27/20 00:30 Urine,Catheterized Urine Culture - Preliminary Gram Negative Rods - Constitutional no acute distress (confused but calm) - *Routine Respiratory Exam Present: CTA bilaterally - *Routine Cardiovascular Exam Present: RRR - *Routine Abdominal Exam Present: soft, normoactive bowel sounds. Absent: tenderness - *Routine Extremities Exam Absent: cyanosis, clubbing, edema - *Routine Skin Exam Comments: dressing in place on right hip Assessment and Plan (1) Hip fracture Current visit: Yes Status: Acute Qualifiers: Encounter type: initial encounter Fracture type: closed Laterality: right Qualified Code(s): S72.001A - Fracture of unspecified part of neck of right femur, initial encounter for closed fracture Category: Medical Code(s): S72.009A - Fracture of unspecified part of neck of unspecified femur, initial encounter for closed fracture (2) Hyperlipidemia Current visit: Yes Status: Acute Category: Medical Code(s): E78.5 - Hyperlipidemia, unspecified (3) BPH (benign prostatic hyperplasia) Current visit: Yes Status: Chronic Category: Medical Code(s): N40.0 - Benign prostatic hyperplasia without lower urinary tract symptoms (4) Dementia Current visit: Yes Status: Chronic Category: Medical Code(s): F03.90 - Unspecified dementia without behavioral disturbance (5) Hypothyroidism Current visit: Yes Status: Chronic Category: Medical Code(s): E03.9 - Hypothyroidism, unspecified (6) Urinary tract infection Current visit: Yes Status: Acute Category: Medical Code(s): N39.0 - Urinary tract infection, site not specified - Assessment and plan all Dx Assessment and Plan for all problems:: Patient is now calm. He still very confused. His daughter is at his bedside. He has oxazepa
--- NOTE | 2020-02-28 09:05 | PC.NURSE ---
pt's daughter at bedside at this time
--- NOTE | 2020-02-28 10:26 | HMH.OTEV ---
OT Inpatient Evaluation Rehab OT IP Evaluation Start: 02/27/20 16:51 Freq: ONCE Status: Complete Protocol: Document 02/28/20 10:18 [facility] (Rec: 02/28/20 10:25 [facility] [id number]) Rehab OT IP Assessment Subjective History Pt is oriented to person and birthday on arrival. Pt was admitted via ED on 02/26/20 after a fall at home resulting in a right hip fracture. Pt was found by daughter, but he was unable to recall how he fell. Pt has a past medical history of peptic ulcer disease, hyperlipidemia, hypothyroidism, dementia, and eczema. Pt required a Right hip cephalo-medullary nailing on 02/27/20. Pt's daughter present during evaluation. Pt 's daughter reports his prior level of function. She explains he was still able to dress himself and feed himself if the tasks were set up for him. He did require assistance with showering. Pt was dependent upon family to complete all IADL's such as cleaning, laundry, and cooking . Pt did not use AE during ambulation. Pt lived with his daughter in her downstairs apartment at her house. Subjective I don't know where I'm at. Objective Patient Orientation Person,Birthday Upper Extremity Gross ROM WFL Bed Mobility bed mobility-scooting,bed mobility - supine/sit,bed mobility - rolling Assist Level Moderate x 1 (50% assist) Transfer Training Sit/Stand Transfer Assist Level Moderate x 1 (50% assist) Rehab OT IP prob,goals,plan Problems Date of Evaluation: 02/28/20 OT IP Problems Bed Mobility,Transfers,Gait, Balance,Self care,Safety Rehab Potential Rehab Potential Good Equipment Needs Assistive Devices Rolling / Wheeled Walker Plan OT intervention Plan Bed Mobility,Transfers,Gait, Balance,Self care,Safety, Therapeutic Exerc
--- NOTE | 2020-02-28 10:47 | HMH.PTEV ---
Physical Therapy Evaluation Rehab PT IP Evaluation Start: 02/27/20 16:51 Freq: ONCE Status: Active Protocol: Document 02/28/20 09:00 [facility] (Rec: 02/28/20 10:47 [facility] [id number]) Subjective/History History History 80 yowm adm to [facility] S/P unwitnessed fall at home with resulting R hip fx, now S/P R femur IMN. He has hx of dementia at baseline and is currently dx'd with UTI as well resulting in increased AMS. Pt lives with Daughter in basement apartment at her house and was independent with ambulation. Subjective Subjective Pt c/o increased pain on the R LE. Rehab PT IP Eval Objective Appearance Patient Behavior Talkative,Confused Patient Orientation Person,Birthday Difficulty following instructions moderate Speech Pattern Clear Ambulation Patient Able to Ambulate No Balance Ability to Arise Able, uses arms to help Sitting Balance Leans or slides in chair Standing Balance Unsteady Dynamic Sitting Balance Ability Poor Dynamic Standing Balance Ability Poor Transfers Bed Transfer Ability Moderate x 2 (50% assist) Chair Transfer Ability Maximum x 2 (75% assist) Sit to Stand Bed Transfer Ability Moderate x 1 (50% assist) ROM All Extremities PT ROM Status WFL MMT RLE PT MMT ABN Abnormal MMT Grade grossly 2/5 Rehab PT IP prob,goals,plan Problems Date of Evaluation: 02/28/20 PT IP Problems Bed Mobility,Transfers,Gait Rehab Potential Rehab Potential Fair Equipment Needs Assistive Devices Rolling / Wheeled Walker Plan PT Intervention Plan Bed Mobility,Transfers,Gait, Balance,Self care,Therapeutic Exercise PT Plan Frequency BID Duration LOS Discharge Goals Bed Transfer Ability Moderate x 1 (50% assist) Sit to Stand Chair Transfer Ability Moderate x 1 (50% assist) Ambulation Assistive Device Rolling Walker Ambulation Distance (feet) 5 Discharge Plan PT Discharge Plan Pt is most appropriate for rehab placement at this time and may need [facility] due to increased dementia and decreased safety a
[2020-02-28 11:15] LABS: Adenovirus,PCR Not Detected (NotDetected); Bordetella Pertussis Not Detected (NotDetected); Chlamydophila Pneumoniae, PCR Not Detected (NotDetected); Coronavirus 19, PCR Not Detected (NotDetected); Coronavirus 229E Not Detected (NotDetected); Coronavirus NL63 Not Detected (NotDetected); Coronavirus OC43 Not Detected (NotDetected); Coronovirus HKU1,PCR Not Detected (NotDetected); Human Metapneumovirus Not Detected (NotDetected); Influenza A, PCR Not Detected (NotDetected); Influenza AH1, 2009 Not Detected (NotDetected); Influenza AH1, PCR Not Detected (NotDetected); Influenza AH3,PCR Not Detected (NotDetected); Influenza B, PCR Not Detected (NotDetected); Mycoplasma Pneumoniae, PCR Not Detected (NotDected); Parainfluenza 1, PCR Not Detected (NotDetected); Parainfluenza 2, PCR Not Detected (NotDetected); Parainfluenza 3, PCR Not Detected (NotDetected); Parainfluenza 4, PCR Not Detected (NotDetected); Respiratory Syncytial Virus Not Detected (NotDetected); Rhinovirus/Enterovirus Not Detected (NotDetected)
[2020-02-28 11:21] VITALS: BP 144/71; PULSE 86; RESP 18; TEMP 37.1; O2SAT 96
--- NOTE | 2020-02-28 12:09 | HMH.ORTHPN ---
Subjective Date: 02/28/20 Time: 12:00 Principal diagnosis: Fracture neck of femur, right hip Interval history: Patient is status post cephalo-medullary nailing right hip post op day #1. Patient is lying down in bed. Patient has marked dementia and is confused postoperatively so it is difficult to make any meaningful conversation with him. Nursing staff says he has been like this through the night. He does not appear to be in any pain or discomfort. No history of any nausea or vomiting. PN: Obj Ex Vital signs: Temp Pulse Resp BP Pulse Ox 98.7 F 86 18 144/71 H 96 02/28/20 11:21 02/28/20 11:21 02/28/20 11:21 02/28/20 11:21 02/28/20 11:21 Narrative: Laboratory Results - last 24 hr 02/27/20 00:30: Urine Color Yellow, Urine Appearance Slightly cloudy, Urine pH 6.5, Ur Specific [place] 1.020, Urine Protein Negative, Urine Glucose (UA) Negative, Urine Ketones Negative, Urine Blood 2+, Urine Nitrate Positive, Urine Bilirubin Negative, Urine Urobilinogen 0.2, Ur Leukocyte Esterase Trace, Urine RBC Occasional, Urine WBC Occasional, Amorphous Sediment 1+, Urine Bacteria 2+, Urine Mucus 1+ 02/27/20 13:02: Blood Type B Positive, Antibody Screen Negative 02/28/20 06:26: WBC 10.0, RBC 4.12 L, Hgb 11.4 L, Hct 35.6 L, MCV 86.5, MCH 27.7, MCHC 32.0, RDW 19.3 H, Plt Count 222, MPV 8.4, Neut % (Auto) 71.2, Lymph % (Auto) 15.1, [place] % (Auto) 10.8 H, Eos % (Auto) 2.8, Baso % (Auto) 0.2, Neut # (Auto) 7.1, Lymph # (Auto) 1.5, [place] # (Auto) 1.1 H, Eos # (Auto) 0.3, Baso # (Auto) 0.0 02/28/20 06:26: Sodium 134 L, Potassium 3.7, Chloride 107, Carbon Dioxide 24, Anion Gap 6.7, BUN 6 L D, Creatinine 0.70, Estimated Creat Clear 56, Estimated GFR 109, Est GFR ( Amer) 132, Glucose 123 H, Calcium 8.4, Total Bilirubin 0.5, AST 25, ALT 12, Alkaline Phosphatase 78, Total Protein 6.0 L, Albumin 3.3 L D, Globulin 2.7, Albumin/Globulin Ratio 1.2 Exam General appearance: alert, active, awake, no acute distress Cardiovascular: regular rate & rhythm, normal peripheral pulses Respiratory: Clear to auscultation, normal breath sounds ABD: soft and non tender Neuro: alert, awake Genitourinary: Catheter in situ. On examination of the lower extremities the limb lengths are equal. Thigh and calf are soft and nontender. On examination of the right hip/femur the dressings are clean, dry and intact. No soakage or strikethrough noted. Distal pulses are 1+. He is actively moving the foot and ankle. - Urinary Catheter Management [place] Cath placed during this visit: no Progress Note: A&P (1) Hip fracture Status: Acute Current Visit: Yes (2) Hyperlipidemia Status: Acute Current Visit: Yes (3) BPH (benign prostatic hyperplasia) Status: Chronic Current Visit: Yes (4) Dementia Status: Chronic Current Visit: Yes (5) Hypothyroidism Status: Chronic Current Visit: Yes (6) Urinary tract infection Status: Acute Current Visit: Yes Assessment and Plan for All Diagnoses:: I have reviewed the clinical findings and progress. I have discussed his progress with the nursing staff and also with Dr. Napier. Patient is doing well from an orthopedic standpoint and no postop complications are noted. Patient can be mobilized weightbearing as tolerated on the right side with the walker and help of physical therapy. Continue DVT prophylaxis. Discontinue the urinary catheter. Case management consult regarding discharge planning. Patient can be discharged from an orthopedic standpoint if appropriate medically. Recommend DVT prophylaxis for 6 weeks postop- the appropriate agents include Lovenox, Aspirin 325 mg, Xarelto (Rivaroxaban), Eliquis (apixaban) and Coumadin. Follow-up in my office in 2 weeks? time with check x-ray. Please feel free to call our office at [phone] for any orthopaedic questions. Continue medical management as per Dr. Napier.
[2020-02-28 15:09] VITALS: BP 154/88; PULSE 90; RESP 18; TEMP 37.6; O2SAT 96
--- NOTE | 2020-02-28 17:56 | PC.NURSE ---
PATIENT HAS BEEN CONFUSED THRU THIS RN COMPLETE SHIFT. AT TIMES PATIENT HAS BECOME COMBATIVE. THIS RN REMOVED DIAZ AND PATIENT TOLERATED WELL. PATIENT WILL NOT EAT OR DRINK ON OWN. PATIENT NEEDS ENCOURAGEMENT TO CHEW AND SWALLOW. PATIENT HAS REQUIRED AN [employer] [employer] AT BEDSIDE AT ALL TIMES WHEN PATIENT'S DAUGHTER HAS NOT BEEN IN THE ROOM. NO OTHER NEEDS OR QUESTIONS AT THIS TIME.
[2020-02-28 19:25] VITALS: BP 137/78; PULSE 87; RESP 18; TEMP 37.7; O2SAT 96
[2020-02-29 03:40] VITALS: BP 121/70; PULSE 117; RESP 20; TEMP 36.7; O2SAT 96
[2020-02-29 05:00] VITALS: BMI 19.5
--- NOTE | 2020-02-29 05:04 | PC.NURSE ---
PT. PLEASANTLY CONFUSED, CAN STATE NAME AND ; SAFETY MEASURES CONTINUED TO BE APPLIED. PT. ABLE TO FOLLOW COMMANDS. R LEG DSGS C/D/I; PT. DENIES PAIN, N/V/D, DIZZINESS OR SOA. PT. HAS SLEPT FOR MOST OF SHIFT.
[2020-02-29 08:00] VITALS: BP 122/68; PULSE 81; RESP 17; TEMP 37.3; O2SAT 96
--- NOTE | 2020-02-29 08:21 | HMH.ACPN2 ---
<Dianna Veras - Last Filed: 02/29/20 08:21> Internal Medicine - PN: Subj *Date: 02/29/20 *Time: 08:21 Interval history: Patient is feeling better today and is more awake and alert. He was able to eat some breakfast as long as someone was feeding him. He denies pain in the hip unless he moves. The dressing on his right hip is starting to come off and he does have pain whenever that is moved. He is unsure how he slept last night. Exam Vital signs and Labs for Last 24 Hours: Temp Pulse Resp BP Pulse Ox 98.0 F 117 H 20 121/70 96 02/29/20 03:40 02/29/20 03:40 02/29/20 03:40 02/29/20 03:40 02/29/20 03:40 Laboratory Results - last 24 hr 02/28/20 11:00: Chlamy pneumoniae PCR Not detected, Adenovirus (PCR) Not detected, B. pertussis DNA (PCR) Not detected, Coronavirus OC43 (PCR) Not detected, Coronavirus HKU1 (PCR) Not detected, Coronavirus 229E (PCR) Not detected, COVID-19 PCR Not detected, Coronavirus NL63 (PCR) Not detected, Human Metapneumovir PCR Not detected, Influenza A (H1) PCR Not detected, Influ A (H1N1/09) PCR Not detected, Influenza A (H3) PCR Not detected, Influenza Type A (PCR) Not detected, Influenza Type B (PCR) Not detected, M. pneumoniae (PCR) Not detected, Parainfluenza 1 (PCR) Not detected, Parainfluenza 2 (PCR) Not detected, Parainfluenza 3 (PCR) Not detected, Parainfluenza 4 (PCR) Not detected, RSV (PCR) Not detected, Entero/Rhino (PCR) Not detected I & O for Last 24 hours: Intake & Output 02/26/20 02/27/20 02/28/20 02/29/20 11:59 11:59 11:59 11:59 Intake Total 360 / 360 2651 / 2651 1292 / 1292 Output Total 800 / 800 1950 / 2350 400 / 400 Balance -440 / -440 701 / 301 892 / 892 Weight 143 lb 1 oz 146 lb 7 oz 144 lb 8 oz Microbiology Reports for the Last 24 Hours: Microbiology 02/27/20 00:30 Urine,Catheterized Urine Culture - Final Klebsiella pneumoniae - Constitutional no acute distress - *Routine Respiratory Exam Present: CTA bilaterally - *Routine Cardiovascular Exam Present: RRR - *Routine Abdominal Exam Present: soft, normoactive bowel sounds. Absent: tenderness - *Routine Extremities Exam Absent: cyanosis, clubbing, edema Comments: right hip with dressing partially in place - *Routine Neurological Exam Present: alert (much more alert and awake today) Assessment and Plan (1) Hip fracture Current visit: Yes Status: Acute Qualifiers: Encounter type: initial encounter Fracture type: closed Laterality: right Qualified Code(s): S72.001A - Fracture of unspecified part of neck of right femur, initial encounter for closed fracture Category: Medical Code(s): S72.009A - Fracture of unspecified part of neck of unspecified femur, initial encounter for closed fracture (2) UTI due to Klebsiella species Current visit: Yes Status: Acute Category: Medical Code(s): N39.0 - Urinary tract infection, site not specified; B96.89 - Other specified bacterial agents as the cause of diseases classified elsewhere (3) Hyperlipidemia Current visit: Yes Status: Acute Category: Medical Code(s): E78.5 - Hyperlipidemia, unspecified (4) BPH (benign prostatic hyperplasia) Current visit: Yes Status: Chronic Category: Medical Code(s): N40.0 - Benign prostatic hyperplasia without lower urinary tract symptoms (5) Dementia Current visit: Yes Status: Chronic Category: Medical Code(s): F03.90 - Unspecified dementia without behavioral disturbance (6) Hypothyroidism Current visit: Yes Status: Chronic Category: Medical Code(s): E03.9 - Hypothyroidism, unspecified - Assessment and plan all Dx Assessment and Plan for all problems:: Patient will likely need dressing change today. Ortho to follow. His urine culture came back showing Klebsiella pneumonia which is sensitive to Rocephin. We will continue antibiotics. His mental status is improving and he is starting to eat. He will need placeme
--- NOTE | 2020-02-29 09:12 | SW/DCPLANNER ---
Addendum entered by Preeti Sanders 02/29/20 11:50: This patient has been accepted to [facility]. Patients daughter is aware and agrees with this plan. Patient will discharge to [facility] today. I will notify patients nurse. Addendum entered by Preeti Sanders 02/29/20 10:16: Patient information has also been faxed to [facility] per daughters request. I will follow up with [facility] and [facility] today once patient information is reviewed. Original Note: I have spoke with patients daughter (Abril) regarding discharge plans. Daughter has stated that she agrees with placement at time of discharge. Daughter has requested (in this order): [facility] (no beds), [facility] (not accepting patients today), [facility] (info faxed), [facility] or [facility] facilities. I have spoke with Alexandra at [facility] and she has stated that she does have male beds available and will review this referral. Patient information has been faxed to [facility]. I will continue to follow up with patients daughter.
--- NOTE | 2020-02-29 11:32 | HMH.SLDYSPHA ---
Speech & Language Evaluation Speech/Language Dysphagia Evaluation Start: 02/29/20 10:47 Freq: ONCE Status: Active Protocol: Document 02/29/20 10:47 [facility] (Rec: 02/29/20 11:32 [facility] [id number]) Dysphagia Assess/Goals/Plan Assessment Date of Evaluation: 02/29/20 Evaluation Type Initial Certification Assessment/Problems Dysphagia Does Patient Qualify for Service No Qualify/Failure Comment Patient does not qualify for ST services at this time based on the results of today's evaluation. Swallowing safety strategies were implemented for patient's safety during intake. Recommendations PHYSICIAN CERTIFICATION: The specified therapy services are required, authorized, and reviewed every 30 days. Diet Recommendations Normal Liquid Type Recommendations Normal/Thin SL Swallow Guidelines Assist w/all meals,Alt bite w/ sip thru meal,Standard Aspiration Prec. Dysphagia Swallow Precautions/Strategies Sitting Upright (90 deg),Small Bites and Sips,Alternate Liquids/Solids Comment Assistance should be provided with all meals to ensure safety during intake. Patient sometimes requires a reminder to chew/swallow food. Plan Pt/Guardian verbally ack understanding Yes: Patient's daughter of dx/prognosis/goals G -code Required No Education Instructions provided Education provided to patient and his daughter regarding swallowing safety strategies to implement such as sitting upright during intake and at least 30 minutes following intake, taking small bites/ sips, alternating between bites/sips, and assisting patient with meals. Pt/Caregiver able to recall information Able to recall/restate Reinforcement needed No General Information General Current Food Consistancy Regular,Thin Liquids Dentition Good Dentition Oxygen Status Room Air Facial Symmetry Symmetrical Patient Orientation Person,Place Ability to Follow Directions Good Communication Ability No Impairment Dysphagia:Food Presentation Evaluation Food Type Pureed,Mechanical Soft,Regular
[2020-02-29 12:00] VITALS: BP 128/70; PULSE 82; RESP 17; TEMP 37.2; O2SAT 96
--- NOTE | 2020-02-29 12:53 | HMH.DCSUM ---
General - General Admission date:: 02/26/20 <Sammy Napier - 03/13/20 18:20> 02/26/20 <Dianna Veras - 02/29/20 13:02> Discharge date: 02/29/20 <RitoDianna - 02/29/20 13:02> HPI HPI: Mr. Solano is a 80-year-old male with a history of peptic ulcer disease, hyperlipidemia, hypothyroidism, dementia, and eczema. He states he had a fall at home but does not remember how he fell. His daughter heard him yelling in her downstairs apartment. She found him on the floor and he was unable to get up. 911 was called and he was transported to the emergency room where he was found to have a right hip fracture. He was admitted and started on pain medication and Ortho was consulted. His daughter does state approximately 2 weeks ago he was complaining of some right hip pain and said it felt weak. She is unsure if maybe it just gave out at home and this was the cause of his fall. He has had pain medication this morning and states his hip is feeling better. <RitoDianna - 02/29/20 13:02> Hospital Course Hospital Course: The patient's EKG and chest x-ray were normal. His hip x-ray showed a nondisplaced right intertrochanteric femur fracture. He had an echo showing an EF of 55% with grade 1 diastolic dysfunction. There was a thickened and calcified aortic valve without any aortic stenosis or insufficiency. He was admitted and started on pain control and orthopedics was consulted. He was also started on Rocephin due to a possible urinary tract infection. He was seen in consultation by Dr. Rich and he performed a cephalo-medullary nailing of the right femur on 02/27/2020. He had a repeat x-ray of the hip showing an ORIF of the right hip with good alignment. The patient tolerated the procedure well but did have increased confusion the night and day after the procedure. He had to be given some oxazepam to calm him and was also started on aricept. By 02/29/2020, his mental status had improved. He was almost back to his baseline of dementia. He was able to eat and drink with assistance. His urine culture did grow out Klebsiella pneumoniae which was sensitive to Rocephin. He was continued on antibiotics. Seroquel was also added at night for behavior control. The patient was felt to be stable for rehab. Care management found him a bed at [facility] and he was stable to be discharged. He will need to follow-up with Dr. Rich in 2 weeks. He was discharged on pain medication, Aricept, Seroquel, Xarelto, Haldol as needed for agitation, and Ceftin for his urinary tract infection. He will need continued PT/OT. <Dianna Veras - 02/29/20 13:02> Objective Vital signs: Temp Pulse Resp BP Pulse Ox 99 F 82 17 128/70 96 02/29/20 12:00 02/29/20 12:00 02/29/20 12:00 02/29/20 12:00 02/29/20 12:00 <KarthikeyanSammy Blade - 03/13/20 18:20> Temp Pulse Resp BP Pulse Ox 99.1 F 81 17 122/68 96 02/29/20 08:00 02/29/20 08:00 02/29/20 08:00 02/29/20 08:00 02/29/20 08:00 <Dianna Veras - 02/29/20 13:02> Narrative: - Constitutional no acute distress - *Routine Respiratory Exam Present: CTA bilaterally - *Routine Cardiovascular Exam Present: RRR - *Routine Abdominal Exam Present: soft, normoactive bowel sounds. Absent: tenderness - *Routine Extremities Exam Absent: cyanosis, clubbing, edema Comments: right hip with dressing partially in place - *Routine Neurological Exam Present: alert (much more alert and awake today) <Dianna Veras - 02/29/20 13:02> DS: Diagnosis - Discharge Diagnosis (1) Hip fracture Status: Acute (2) UTI due to Klebsiella species Status: Acute (3) Hyperlipidemia Status: Acute (4) BPH (benign prostatic hyperplasia) Status: Chronic (5) Dementia Status: Chronic (6) Hypothyroidism Status: Chronic <Dianna Veras - 02/29/20 12:53> (1) Hip fracture Status: Acute (2) UTI due to Klebsiella species S
--- NOTE | 2020-02-29 19:34 | PC.NURSE ---
THIS RN FEED PATIENT THIS AM BREAKFAST. [facility] ENCOURAGMENT TO CHEW AND SWALLOW PATIENT ATE 50% OF BREAKFAST. PATIENT STATED HE WOULD LIKE COFFEE. THIS RN PROVIDED PATIENT A MUG WITH COFFEE. PATIENT STATED, CAN YOU SHOW ME HOW TO TURN IT? THIS RN STATED, YOU DON'T TURN IT, PUT THE STRAW UP TO YOUR MOUTH AND SUCK IN THE COFFEE. PATIENT DEMONSTRATED AND TOLERATED WELL. PATIENT CONTINUED TO DRINK COFFEE ON HIS OWN AFTERWARDS. THIS RN PROVIDED D/C REPORT TO ARAVIND LANDEROS AT [facility]. THIS RN ALSO INFORMED LETI THE DR. FOX WOULD LIKE PATIENT'S DRESSING CHANGED. LETI STATED THAT THEY BATHED HIM AND CHANGED HIS DRESSING. NO OTHER CONCERNS AT THIS TIME.
== END 2020-02-29 15:30 | DRG 481 ==
LOC: ER 20:25 → 2ND 21:39
PROVIDERS: Orthopaedic Surgery; Admitting Provider Family Medicine; Emergency Provider Emergency Medicine; PCP Family Medicine; Visit Provider Family Medicine
PROC: 0QS636Z Reposition Right Upper Femur with Intramedullary Internal Fixation Device, Percutaneous Approach (ICD-10-PCS; principal; 2020-02-27 14:00)
DX: S72.141A Displaced intertrochanteric fracture of right femur, initial encounter for closed fracture (principal); N39.0 Urinary tract infection, site not specified; W01.0XXA Fall on same level from slipping, tripping and stumbling without subsequent striking against object, initial encounter; Y92.019 Unspecified place in single-family (private) house as the place of occurrence of the external cause; B96.1 Klebsiella pneumoniae [K. pneumoniae] as the cause of diseases classified elsewhere; N40.0 Benign prostatic hyperplasia without lower urinary tract symptoms; E03.9 Hypothyroidism, unspecified; Z72.0 Tobacco use; E78.5 Hyperlipidemia, unspecified
CPT/HCPCS: 27240; 36415; 71045; 73502; 76000; 80048; 80053; 81001; 83735; 84484; 85025; 85610; 86850; 87086; 87088; 87186; 87581; 87633; 87798; 92610; 93005; 93306; 96374; 97163; 97166; 97530; 97535; 99284; C1713; C1769; J2704; J3370

== ENCOUNTER → 2020-03-20 10:01 | Outpatient (CLI) | payer MEDICARE, OTHER, SELFPAY ==
--- NOTE | 2020-03-20 10:09 | XR_ITS ---
PROCEDURE: XR HIP RT 2-3V W/PELVIS CLINICAL INDICATION: RT femur nailing, dos 02/27/2020 Follow-up ORIF COMPARISON: XR HIP RT 2-3V W/PELVIS from 02/26/2020 XR HIP RT 2-3V W/PELVIS from 02/27/2020 FINDINGS: Gamma nail with right intramedullary david remains in place with good alignment. No evidence of orthopedic complication. IMPRESSION: Good alignment status post ORIF right hip with long intramedullary david and gamma nail Dictated by: Tom Naranjo MD 03/20/2020 14:35 Electronically signed by Tom Naranjo MD in [facility] 03/20/2020 14:35
== END ==
PROVIDERS: PCP Internal Medicine Adolescent Medicine; Visit Provider Orthopaedic Surgery
DX: Z09 Encounter for follow-up examination after completed treatment for conditions other than malignant neoplasm (principal); S72.001D Fracture of unspecified part of neck of right femur, subsequent encounter for closed fracture with routine healing
CPT/HCPCS: 73502